=== PATIENT | male | born 1975 | race Caucasian/White ===

== ENCOUNTER 2019-08-13 08:52 | Outpatient (CLI) | payer OTHER, SELFPAY ==
--- NOTE | 2019-08-13 09:02 | US_ITS ---
WS: [id number] Bilateral renal ultrasound, 08/13/2019 Clinical Data: CHRONIC BACK PAIN/HX OF ABNORMAL US RENAL BLADDER Comparison: None. Findings: The right kidney measures 11.4 cm x 6.5 cm x 5.2 cm and the left kidney is 11.7 cm x 6.3 cm x 6.8 cm. There is a small right renal cyst measuring 0.97 x 1.42 x 1.84 cm. There is also a small left renal cortical cyst measuring 1.29 x 1.40 x 1.42 cm. No hydronephrosis or renal calculi are seen. Renal cor tical margins are normal. The abdominal aorta and inferior vena cava show no vascular abnormalities. The bladder was scanned and was not remarkable. US/US renal BI with bladder Impression: Negative bilateral renal ultrasound with incidental small bilateral simple manju l cortical cysts.
--- NOTE | 2019-08-13 09:02 | US_ITS ---
WS: [id number] Abdomen ultrasound, 08/13/2019 Clinical Data: CHRONIC ABDOMINAL PAIN Comparison: None. Findings: The pancreas shows no cyst, pseudocyst or evidence of pancreatitis. The liver shows no cysts, masses or dilated intrahepatic ducts. The liver measures 16.[address] AP diameter. The gallbladder has no definite stones, but there is sludge. The wall measures 0.2 cm with no perich olecystic fluid. The common bile duct is 0.5 cm and no intraductal abnormalities are noted. The right kidney is 10.6 cm. There is a small cortical cyst measuring 1.31 x 1.52 x 1.57 cm.. The left kidney is 10.1 cm. There is a small left cortical cyst measuring 1.19 x 1.23 x 1.65 cm. No r enal calculi, masses or hydronephrosis is seen. The abdominal aorta is not dilated and the inferior vena cava has normal flow. No vascular abnormalit ies are seen. The spleen measures 3.68 x 10.58 x 10.82 cm cm and there are no intrasplenic masses or capsular abnor malities. US/US abdomen complete* [id number] Impression: Negative abdomen ultrasound.
== END 2019-08-13 08:53 | disposition home or self-care (01) ==
LOC: RAD 08:56
PROVIDERS: Family Provider Physician Assistant; PCP Physician Assistant; Visit Provider Family Medicine
DX: N28.1 Cyst of kidney, acquired (principal); R10.9 Unspecified abdominal pain
CPT/HCPCS: 76700; 76770; 76857